=== PATIENT | female | born 1955 | race American Indian/Alaskan Native ===

== ENCOUNTER 2017-11-21 10:37 | Outpatient (CLI) | payer BC ==
--- NOTE | 2017-11-21 14:01 | Mammography Report ---
BILATERAL DIGITAL SCREENING MAMMOGRAM with CAD: 11/21/17 10:37:00 CLINICAL: Routine screening. COMPARISON:05/12/16 FINDINGS: The breasts are almost entirely fatty. No mass, architectural distortion or suspicious calcifications. IMPRESSION: No mammographic evidence of malignancy. BI-RADS CATEGORY: 1 - - Negative RECOMMENDATION: Routine mammographic screening in one year. COMMENT: Patient follow-up letters are generated by our [employer] application.
== END 2017-11-21 10:38 | disposition home or self-care (01) ==
LOC: MAMMO 10:37
PROVIDERS: ATTEND Internal Medicine
DX: Z12.31 Encounter for screening mammogram for malignant neoplasm of breast (principal)
CPT/HCPCS: 77067

== ENCOUNTER 2018-11-21 05:42 | Outpatient (CLI) | payer BC ==
[2018-11-21 07:16] LABS: Blood Urea Nitrogen 8 mg/dL (7-17)
[2018-11-21 11:58] LABS: Alanine Aminotransferase 19 units/L (7-56); Albumin 4.2 g/dL (3.9-5); BUN/Creatinine Ratio 13; Blood Urea Nitrogen 8 mg/dL (7-17); Calcium 9.3 mg/dL (8.4-10.2); Chol/HDL Ratio 2.61 %; HDL Cholesterol 72 mg/dL (40-59); Hemolysis Index 8; LDL Cholesterol,Direct 122 mg/dL (50-130)
== END 2018-11-21 05:43 | disposition home or self-care (01) ==
LOC: CT 05:42
PROVIDERS: ATTEND Internal Medicine
DX: I65.29 Occlusion and stenosis of unspecified carotid artery (principal); E78.5 Hyperlipidemia, unspecified
CPT/HCPCS: 36415; 80053; 80061; 82565; 84520

== ENCOUNTER 2018-11-22 07:58 | Outpatient (CLI) | payer BC ==
--- NOTE | 2018-11-22 13:36 | Mammography Report ---
BILATERAL DIGITAL SCREENING MAMMOGRAM with CAD: 11/22/18 07:58:00 CLINICAL: Routine screening. COMPARISON:11/21/17 FINDINGS: The breasts are almost entirely fatty. No mass, architectural distortion or suspicious calcifications. IMPRESSION: No mammographic evidence of malignancy. BI-RADS CATEGORY: 1 - - Negative RECOMMENDATION: Routine mammographic screening in one year. COMMENT: Patient follow-up letters are generated by our [employer] application.
== END 2018-11-22 07:59 | disposition home or self-care (01) ==
LOC: MAMMO 07:58
PROVIDERS: ATTEND Internal Medicine
DX: Z12.31 Encounter for screening mammogram for malignant neoplasm of breast (principal)
CPT/HCPCS: 77067

== ENCOUNTER 2019-05-22 05:55 | Outpatient (CLI) | payer BC ==
[2019-05-22 10:52] LABS: Blood Urea Nitrogen 13 mg/dL (7-17)
[2019-05-22 10:53] LABS: BUN/Creatinine Ratio 19; Hemolysis Index 2
--- NOTE | 2019-05-22 12:09 | Cat Scan Report ---
CT ABDOMEN AND PELVIS WITH CONTRAST HISTORY: MAIN: N28.1 CYST OF KIDNEY TECH NOTES: EVALUATE KIDNEY CYST. 100 CC OMNI 300 COMPARISON: None. TECHNIQUE: Axial CT images were obtained through the abdomen and pelvis after 100 cc of Omnipaque 300 intravenously. Sagittal and coronal reformatted images. All CT scans at this location are performed using CT dose reduction for ALARA by means of automated exposure control. FINDINGS: CT ABDOMEN: Lung Bases: Clear. Liver: A few scattered cysts measuring less than 2 cm. No parenchymal liver disease or mass. Biliary: No significant abnormality. Spleen: No significant abnormality. Unenlarged. Pancreas: No significant abnormality. Adrenals: A 2.5 cm low-density right adrenal mass is identified with internal density measuring -16 H [place] units. This probably represents an adenoma. The left adrenal gland is normal. Kidneys: The left kidney is normal size, contour and enhancement pattern. No focal left renal lesion. There is a large unilocular cyst at the superior pole the right kidney measuring up to 8.8 cm in del meter. No internal septations, calcifications or soft tissue component. No other right renal lesion. The ureters are normal course and caliber. Lymphatics: No lymphadenopathy. Vasculature: No significant abnormality. Bowel/Peritoneum: No significant abnormality. No free air. No free fluid. Normal appendix. CT PELVIS: : The uterus is mildly enlarged and lobular consistent with fibroid disease. There are 2 fibroids a t the uterine fundus measuring up to 4 cm in diameter. No adnexal cyst or mass. Osseous Structures: No significant abnormality. Additional Findings: None IMPRESSION: 8.8 cm unilocular cyst at the superior pole the right kidney. No suspicious characteristics. Scattered liver cysts. Uterine fibroid disease. 2.5 cm low-density right adrenal mass which probably represents an adrenal adenoma. Signer Name: Aashish Bain Jr, MD Signed: 05/22/2019 12:04 PM Workstation Name: [id number]
== END 2019-05-22 05:56 | disposition home or self-care (01) ==
LOC: CT 05:55
PROVIDERS: ATTEND Urology
DX: K76.89 Other specified diseases of liver (principal); N28.1 Cyst of kidney, acquired; D25.9 Leiomyoma of uterus, unspecified
CPT/HCPCS: 36415; 74178; 80048; 82088; Q9967

== ENCOUNTER 2019-11-11 12:01 | Outpatient (CLI) | payer BC ==
[2019-11-11 12:47] LABS: Basophils % (Auto) TNR % (0.0-1.8); Eosinophils % (Auto) TNR % (0.0-4.3); Hematocrit TNR % (30.3-42.9); Hemoglobin TNR gm/dl (10.1-14.3); Lymphocytes % (Auto) TNR % (13.4-35.0); Mean Corpuscular HGB Conc TNR % (30-34); Mean Corpuscular Volume TNR fl (79-97); Monocytes % (Auto) TNR % (0.0-7.3); Platelet Count TNR K/mm3 (140-440); Red Blood Count TNR M/mm3 (3.65-5.03); Red Cell Distribution Width TNR % (13.2-15.2)
[2019-11-11 12:48] LABS: Basophils # (Auto) TNR K/mm3 (0.0-0.1); Eosinophils # (Auto) TNR K/mm3 (0.0-0.4); Lymphocytes # (Auto) TNR K/mm3 (1.2-5.4); Monocytes # (Auto) TNR K/mm3 (0.0-0.8)
[2019-11-11 13:07] LABS: Basophils # (Auto) 0.1 K/mm3 (0.0-0.1); Basophils % (Auto) 1.4 % (0.0-1.8); Eosinophils # (Auto) 0.2 K/mm3 (0.0-0.4); Eosinophils % (Auto) 4.1 % (0.0-4.3); Hematocrit 39.2 % (30.3-42.9); Lymphocytes # (Auto) 2.4 K/mm3 (1.2-5.4); Lymphocytes % (Auto) 46.8 % (13.4-35.0); Mean Corpuscular HGB Conc 33 % (30-34); Mean Corpuscular Volume 85 fl (79-97); Monocytes # (Auto) 0.4 K/mm3 (0.0-0.8); Platelet Count 239 K/mm3 (140-440); Red Cell Distribution Width 14.9 % (13.2-15.2)
[2019-11-11 13:24] LABS: Alanine Aminotransferase 12 units/L (7-56); Albumin 4.3 g/dL (3.9-5); BUN/Creatinine Ratio 22; Blood Urea Nitrogen 13 mg/dL (7-17); Calcium 9.6 mg/dL (8.4-10.2); Chol/HDL Ratio 2.76 %; HDL Cholesterol 77 mg/dL (40-59); Hemolysis Index 1; LDL Cholesterol,Direct 136 mg/dL (50-130)
== END 2019-11-11 12:02 | disposition home or self-care (01) ==
LOC: LAB 12:01
PROVIDERS: ATTEND Internal Medicine
DX: Z00.00 Encounter for general adult medical examination without abnormal findings (principal)
CPT/HCPCS: 36415; 80053; 80061; 84443; 85025

== ENCOUNTER 2019-12-06 12:17 | Outpatient (CLI) | payer BC ==
--- NOTE | 2019-12-09 13:10 | Mammography Report ---
DIGITAL SCREENING MAMMOGRAM WITH CAD, 12/06/2019 INDICATION: Routine screening mammography. TECHNIQUE: Digital bilateral 2D mammography was obtained in the craniocaudal and mediolateral obliq ue projections. This examination was interpreted with the benefit of Computer-Aided Detection analysi s. COMPARISON: 11/22/2018 FINDINGS: Breast Density: The breasts are almost entirely fatty. There is no evidence of dominant mass, suspicious calcifications or architectural distortion in eithe r breast. IMPRESSION: No mammographic evidence of malignancy. Follow up recommendation: Routine yearly BI-RADS Category 1: Negative. A "normal" or negative report should not discourage follow up or biopsy of a clinically significant f inding. A written summary of these findings will be mailed to the patient. The patient will be entered into a mammography reporting system which will generate a reminder letter for the patient's next appointmen t at the appropriate interval. The [employer] recommends yearly mammograms starting at age 40 and continuing as l nancy as a woman is in good health. Breast MRI is recommended for women with an approximate 20-25% or greater lifetime risk of breast cancer, including women with a strong family history of breast or ova marianne cancer or who have been treated for Hodgkin's disease. Signer Name: Dann Danielle MD Signed: 12/09/2019 1:06 PM Workstation Name: [id number]
== END 2019-12-06 12:18 | disposition home or self-care (01) ==
LOC: MAMMO 12:17
PROVIDERS: ATTEND Internal Medicine
DX: Z12.31 Encounter for screening mammogram for malignant neoplasm of breast (principal); N64.89 Other specified disorders of breast
CPT/HCPCS: 77067

== ENCOUNTER 2021-08-11 11:20 | Outpatient (CLI) | payer BC ==
--- NOTE | 2021-08-11 15:28 | Mammography Report ---
DIGITAL SCREENING MAMMOGRAM WITH CAD, 08/11/2021 CLINICAL INFORMATION / INDICATION: Routine screening mammography. SCREENING MAMMOGRAM TECHNIQUE: Digital bilateral 2D mammography was obtained in the craniocaudal and mediolateral obliqu e projections. This examination was interpreted with the benefit of Computer-Aided Detection analysis . COMPARISON: 08/06/2012 through 12/06/2019. FINDINGS: Breast Density: The breasts are almost entirely fatty. No dominant mass, suspicious calcifications, or architectural distortion in either breast. IMPRESSION: No mammographic evidence of malignancy. Follow up recommendation: Routine yearly BI-RADS Category 1: Negative. A "normal" or negative report should not discourage follow up or biopsy of a clinically significant f inding. A written summary of these findings will be mailed to the patient. The patient will be entered into a mammography reporting system which will generate a reminder letter for the patient's next appointmen t at the appropriate interval. The [employer] recommends yearly mammograms starting at age 40 and continuing as l nancy as a woman is in good health. Breast MRI is recommended for women with an approximate 20-25% or greater lifetime risk of breast cancer, including women with a strong family history of breast or ova marianne cancer or who have been treated for Hodgkin's disease. Signer Name: Del Smith MD Signed: 08/11/2021 3:24 PM Workstation Name: [id number]
== END 2021-08-11 11:21 | disposition home or self-care (01) ==
LOC: SPVWC 11:20
PROVIDERS: ATTEND Internal Medicine
DX: Z12.31 Encounter for screening mammogram for malignant neoplasm of breast (principal)
CPT/HCPCS: 77067